=== PATIENT | female | born 1995 | race Native Hawaiian/Other Pacific Islander ===

== ENCOUNTER 2019-11-01 08:42 | Emergency (ER) | payer OTHER ==
[~2019-11-01] VITALS: Ht 160 cm; Wt 101.2 kg
[2019-11-01 08:53] VITALS: BP 142/80; TEMP 97.9
== END 2019-11-01 10:08 | disposition home or self-care (01) ==
LOC: ED 08:42
DX: G62.9 Polyneuropathy, unspecified (principal); Z18.81 Retained glass fragments; Z98.890 Other specified postprocedural states
CPT/HCPCS: 96372; 99283; J1885; J2930